=== PATIENT | female | born 1960 | race Caucasian/White ===

== ENCOUNTER 2024-09-18 11:19 | Outpatient (CLI) | payer BC, SELFPAY | END 2024-09-18 11:20 | disposition home or self-care (01) | PROVIDERS: PCP Emergency Medicine; Visit Provider Emergency Medicine | DX: E03.9 Hypothyroidism, unspecified (principal); E61.1 Iron deficiency; E78.5 Hyperlipidemia, unspecified | CPT/HCPCS: 80061; 82306; 82607; 82728; 84443 ==